=== PATIENT | female | born 1990 | race Caucasian/White ===

== ENCOUNTER 2019-09-15 16:54 | Emergency (ER) | payer OTHER ==
[~2019-09-15] VITALS: Ht 149.9 cm; Wt 81.6 kg
[2019-09-15 16:59] VITALS: BP 124/68
--- NOTE | 2019-09-15 17:23 | NUR ---
Patient discharged with v/s stable. Written and verbal after care instructions given and explained. Patient alert, oriented and verbalized understanding of instructions. Ambulatory with steady gait. All questions addressed prior to discharge. ID band removed. Patient advised to follow up with PMD. Rx of KEFLEX, PREDNISONE, AND BENADRYL given. Patient educated on indication of medication including possible reaction and side effects. Opportunity to ask questions provided and answered.
--- NOTE | 2019-09-15 17:23 | NUR ---
PT SEEN AND D/C BY DR. ARCE. NO NURSING CARE PROVIDED.
[2019-09-15 17:25] VITALS: BP 124/68
== END 2019-09-15 17:23 | disposition home or self-care (01) ==
LOC: MED 16:54
DX: T63.441A Toxic effect of venom of bees, accidental (unintentional), initial encounter (principal); T78.49XA Other allergy, initial encounter
CPT/HCPCS: 99283